=== PATIENT | male | born 1980 | race African-American/Black ===

== ENCOUNTER 2018-06-16 15:11 | Emergency (ER) | payer SELFPAY ==
[~2018-06-16] VITALS: Ht 172.7 cm; Wt 163.3 kg
[2018-06-16 15:19] VITALS: BP 147/104
--- NOTE | 2018-06-16 15:26 | NUR ---
PT AMB TO BED 2
--- NOTE | 2018-06-16 15:27 | NUR ---
37/M BIB SELF C/O rt testicle pain x 1 day, swelling, denies redness, drainage. Denies fevers/chills.DENIES N/V/D; SKIN IS PINK/WARM/DRY; AAOX4 WITH EVEN AND STEADY GAIT; LUNGS CLEAR BL. PT DENIES ANY FEVER, CP, SOB, OR COUGH AT THIS TIME; PATIENT STATES PAIN OF 7/10 AT THIS TIME. PATIENT POSITIONED FOR COMFORT; HOB ELEVATED; BEDRAILS UP X2; BED DOWN. ER MD MADE AWARE OF PT STATUS.
--- NOTE | 2018-06-16 16:04 | NUR ---
US AT BEDSIDE.
--- NOTE | 2018-06-16 16:32 | NUR ---
Patient being evaluated by DR ADRIAN at bedside.
--- NOTE | 2018-06-16 17:16 | NUR ---
Patient being reevaluated by DR ADRIAN at bedside.
[2018-06-16] MEDS ORDERED: cefTRIAXone 250 MG in LIDOCAINE MPF 1% - 5 mL VIAL 0.9 ML IM ONE (17:25)
[2018-06-16 17:35] VITALS: BP 143/80
--- NOTE | 2018-06-16 17:35 | NUR ---
Patient discharged with v/s stable. Written and verbal after care instructions given and explained. Patient alert, oriented and verbalized understanding of instructions. Ambulatory with steady gait. All questions addressed prior to discharge. ID band removed. Patient advised to follow up with PMD. Rx of DOXYCYCLINE, MOTRIN & NORCO given. Patient educated on indication of medication including possible reaction and side effects. Opportunity to ask questions provided and answered.
[2018-06-18 06:20] LABS: CHLAMYDIA TRACHOMATIS AMP DNA Negative (Negative)
== END 2018-06-16 17:35 | disposition home or self-care (01) ==
LOC: MED 15:11
DX: N45.3 Epididymo-orchitis (principal); N43.3 Hydrocele, unspecified; F12.10 Cannabis abuse, uncomplicated
CPT/HCPCS: 36415; 76870; 96372; 99285; J0696; J2001; Q0092; 87491

== ENCOUNTER 2020-08-08 18:35 | Emergency (ER) | payer MEDICAID ==
[~2020-08-08] VITALS: Ht 172.7 cm; Wt 148.6 kg
[2020-08-08 18:49] VITALS: BP 140/84
--- NOTE | 2020-08-08 19:00 | NUR ---
PATIENT AMBULATED TO BED 3.
--- NOTE | 2020-08-08 19:20 | NUR ---
40 Y/O MALE C/O PENILE PAIN, REDNESS, SWELLING X 2 DAYS. PT STATES WHITE DISCHARGE AND DIFFICULTY URINATING. PT STATES 10/10 PAIN AT THIS TIME. SKIN WARM AND DRY. SWELLING NOTED. MED HX: DENIES NKA
--- NOTE | 2020-08-08 19:25 | NUR ---
ERMD AT BEDSIDE EVALUATING PT
[2020-08-08] MEDS ORDERED: AZITHROMYCIN 250 MG TAB PO ONE (19:30)
[2020-08-08] MEDS ORDERED: cefTRIAXone 250 MG in LIDOCAINE MPF 1% 0.9 ML IM ONE (19:30)
[2020-08-08] MEDS ORDERED: cefTRIAXone 250 MG VIAL ONE (19:43)
[2020-08-08] MEDS ORDERED: LIDOCAINE MPF 1% 5 ML ONE (19:43)
[2020-08-08] MEDS ORDERED: NACL 0.9% 1,000 ML IV ONE (20:05)
--- NOTE | 2020-08-08 20:15 | NUR ---
pt ambulated to restroom, steady gait
[2020-08-08] MEDS: INSULIN REGULAR, HUMAN 100 UNIT/ML VIAL SUBQ ONE ×2 (20:18→22:07)
--- NOTE | 2020-08-08 20:50 | NUR ---
URINE COLLECTED AND SENT TO LAB
--- NOTE | 2020-08-08 20:54 | NUR ---
pt refusing insulin and bolus. ermd made aware
--- NOTE | 2020-08-08 20:59 | NUR ---
DR KENT AT BEDSIDE SPEAKING WITH PT
[2020-08-08 21:40] LABS: ANION GAP 15.2 (8-16); CARBON DIOXIDE 25.9 mmol/L (21-32); CREATININE 1.1 mg/dL (0.6-1.3); POTASSIUM 4.1 mmol/L (3.5-5.1)
[2020-08-08 22:16] VITALS: BP 135/90
--- NOTE | 2020-08-08 22:26 | NUR ---
PT CALM, FLUIDS INFUSING, RESTING IN BED, AWAKE, SAFETY PRECAUTIONS IN PLACE. WILL CONTINUE TO MONITOR
--- NOTE | 2020-08-08 23:07 | NUR ---
PT RBS 383, ERMD MADE AWARE.
--- NOTE | 2020-08-08 23:10 | NUR ---
PER MAKENZIE KENT PT OKAY TO DISCHARGE WITH RBS OF 383.
--- NOTE | 2020-08-08 23:15 | NUR ---
Patient medically cleared for discharge. Discharge instructions given to PT and verbalized understanding, questions answered.Copy of instructions given with RX of METFORMIN AND CLOTRIMAZOLE. advised to follow up with PCP or return to the ED if symptoms worsen.Patient dressed in street clothes, ID band removed. Gait steady, ambulated out of the ED to private car.
[2020-08-11 09:06] LABS: CHLAMYDIA TRACHOMATIS AMP DNA Negative (Negative)
== END 2020-08-08 23:15 | disposition home or self-care (01) ==
LOC: MED 18:35
DX: N48.1 Balanitis (principal); E11.65 Type 2 diabetes mellitus with hyperglycemia; A54.9 Gonococcal infection, unspecified; Z11.3 Encounter for screening for infections with a predominantly sexual mode of transmission
CPT/HCPCS: 36415; 80048; 82948; 86703; 87252; 87491; 96360; 96372; 99284; J0696; J1815; J2001; J7030; 96361